=== PATIENT | female | born 1985 | race Caucasian/White ===

== ENCOUNTER 2021-03-22 15:10 | Emergency (ER) | payer BC ==
[~2021-03-22] VITALS: Ht 175.3 cm; Wt 79.4 kg
[2021-03-22 17:41] VITALS: BP_SYST 140
[2021-03-22 19:36] LABS: BASOPHILS # (AUTO) 0.1 K/uL (0.0-0.2); BASOPHILS % (AUTO) 0.9 % (0.0-2.0); EOSINOPHILS # (AUTO) 0.1 K/uL (0.0-0.4); HEMOGLOBIN 12.3 g/dL (12.0-16.0); LYMPHOCYTES # (AUTO) 3.1 K/uL (1.0-5.5); MEAN CORPUSCULAR HEMOGLOBIN 30 pg (27-31); MEAN CORPUSCULAR HGB CONC 34 % (32-36); MEAN CORPUSCULAR VOLUME 88 fL (79.0-98.0); MONOCYTES # (AUTO) 0.7 K/uL (0.0-1.0); NEUTROPHILS # (AUTO) 9.5 K/uL (1.8-7.7); NEUTROPHILS % (AUTO) 70.1 % (40.0-70.0); PLATELET COUNT (AUTO) 272 K/uL (130-430); RED BLOOD CELL COUNT(AUTO) 4.09 MIL/uL (4.2-6.2); RED CELL DISTRIBUTION WIDTH 12.8 % (9.0-15.0); WHITE BLOOD COUNT (AUTO) 13.5 K/uL (4.8-10.8)
[2021-03-22 19:40] LABS: BILIRUBIN,URINE NEGATIVE (NEGATIVE); BLOOD, URINE NEGATIVE (NEGATIVE); CLARITY/URINE CLEAR (CLEAR); COLOR,URINE YELLOW (YELLOW); GLUCOSE,URINE NEGATIVE (NEGATIVE); KETONES,URINE TRACE (NEGATIVE); PROTEIN URINE NEGATIVE (NEGATIVE)
[2021-03-22 19:41] LABS: LEUKOCYTE ESTERASE ,URINE NEGATIVE (NEGATIVE); NITRITE, URINE NEGATIVE (NEGATIVE); UROBILINOGEN,URINE 0.2 (0.2-1.0)
[2021-03-22 22:21] LABS: CALCIUM 9.3 mg/dL (8.4-11.0); CREATININE 0.68 mg/dL (0.55-1.30); POTASSIUM 4.5 mmol/L (3.5-5.1)
[2021-03-22 22:22] LABS: ALBUMIN 3.7 g/dL (3.4-4.8); TOTAL BILIRUBIN 0.3 mg/dL (0.0-1.0)
[2021-03-22 23:46] VITALS: BP_SYST 140
== END 2021-03-22 23:46 | disposition home or self-care (01) ==
LOC: SED 15:10
DX: O20.0 Threatened abortion (principal); Z3A.01 Less than 8 weeks gestation of pregnancy
CPT/HCPCS: 36415; 76801; 76817; 76856-TC; 80053; 81003; 84702; 85025; 86901; 99284